=== PATIENT | male | born 1945 | race Caucasian/White ===

== ENCOUNTER 2016-09-08 08:34 | Day surgery (SDC) | payer OTHER ==
[~2016-09-08 08:34] MED LIST: CEFAZOLIN SODIUM 2 GRAM PREMIX 100 ML IV ONE; IV START KIT ONE; LACTATED RINGERS 1,000 ML ONE
[2016-09-08] MEDS ORDERED: CEFAZOLIN SODIUM 2 GRAM PREMIX 100 ML IV PRN (09:00)
[2016-09-08] MEDS ORDERED: MIDAZOLAM HCL 1 MG/ML 2ML VIAL ONE (09:43)
[2016-09-08] MEDS ORDERED: BUPIVACAINE 0.5% (PRES FREE) 30 ML VIAL ONE (10:32)
[2016-09-08] MEDS ORDERED: BACITRACIN 1 APPLIC/500 UNIT PACKET TP ONE (10:32)
[2016-09-08] MEDS ORDERED: PROPOFOL 20 ML IV ONE ×2 (10:39→11:41)
[2016-09-08] MEDS ORDERED: SPINAL PROCEDURAL TRAY 1 EACH ONE (10:39)
[2016-09-08] MEDS ORDERED: BUPIVACAINE 0.75% SPINAL AMPUL 2 ML ONE (10:41)
[2016-09-08] MEDS ORDERED: NEOMY SULF/POLYMYXIN B SULFATE 1 ML AMP IR ONE (11:10)
[2016-09-08] MEDS ORDERED: MORPHINE SULFATE 4 MG/ML SYRINGE IV PRN ×2 (11:12→14:29)
[2016-09-08] MEDS ORDERED: ONDANSETRON 4 MG/2ML 2 ML VIAL IV PRN ×2 (11:12→14:17)
[2016-09-08] MEDS ORDERED: PROMETHAZINE HCL 25 MG/ML VIAL IM PRN (11:12)
[2016-09-08] MEDS ORDERED: FENTANYL 100 MCG/2 ML VIAL IV PRN (11:12)
[2016-09-08] MEDS ORDERED: LACTATED RINGERS 1,000 ML IV SCH (11:15)
[2016-09-08] MEDS ORDERED: MORPHINE SULFATE 2 MG/ML SYRINGE IV PRN (14:17)
[2016-09-08] MEDS ORDERED: HYDROCODONE/ACETAMINOPHEN 5/325MG TABLET ONE (14:29)
[2016-09-08] MEDS: HYDROCODONE/ACETAMINOPHEN 5/325MG TABLET PO PRN (14:31)
--- NOTE | 2016-09-08 14:54 | OP ---
AMELIE MONTGOMERY [id number] DATE OF OPERATION: September 08, 2016 SURGEON: Cecilio Liang M.D. LABORATORY INSPECTOR: Rea Mora ANESTHEISA: Spinal. PREOPERATIVE DIAGNOSIS: Massive bilateral hydroceles. POSTOPERATIVE DIAGNOSIS: Massive bilateral hydroceles. PROCEDURE: BILATERAL HYDROCELE REPAIR (EXTENDED DURATION). SPECIMENS: Bilateral portions of hydrocele sacs. INDICATIONS: The patient is a 71-year-old man with a greater than 14 year history of increasing scrotal distention with a [facility] 2016. They have become massive and quite uncomfortable, and the patient presents for surgical intervention. FINDINGS: Right side greater than left side massive hydroceles with clear yellow fluid and no obvious intrinsic pathology of the testicle, epididymis or tunica vaginalis. The right lateral aspect of the right-sided hydrocele was quite scarred to the scrotal wall probably representing some chronic intermittent traumas. PROCEDURE: The patient was identified and brought to the operating room where spinal anesthetic was applied and then he was placed supine on the table. The scrotal region was shaved, prepared, and draped sterilely. We anesthetized the anterior midline raphe of the scrotal wall with 0.5% Marcaine and opened a vertical incision in the raphe and carried it through the dartos with cautery. We elected to start on the left side which was smaller, and dissected the connective tissue between the hydrocele sac and the scrotal wall away from the hydrocele eventually delivering it into the wound and then progressing all the way up to the cord level. The hydrocele sac was then opened on its anterior aspect. This was drained, and the wings of hydrocele sac excised from both sides. We then everted the remaining portions of the hydrocele sac and sutured them posterior to the testicle and cord structures with a running #4-0 PDS suture. With that complete, we checked for any focal bleeding points within the scrotum and treated these with light cautery. We placed a genitourinary irrigant in the left hemiscrotum with the testicle and cord in place and turned our attention to the right side. A prolonged period was required to dissect the right-sided hydrocele out of its scrotal containment largely related to dense scar tissue on the lateral aspect. Once we had sufficiently delivered it from the right hemiscrotum, we also opened this sac which proved to be a location close to the medial aspect of the testicle and cord structures. We extended this incision around and excised the bulk of the hydrocele sac in one piece. We, similarly to the left side, everted the flaps behind the testicle and cord structures and secured them with running #4-0 PDS suture. With that complete, we checked the inside of the right hemiscrotum for any focal bleeding and then irrigated with genitourinary irrigant. A 1/4 inch Kal drain was placed through stab incisions in each hemiscrotum, secured at the level of the skin with #2-0 nylon. The testicle and cord structures were oriented and carefully placed within each hemiscrotum and secured inferiorly and laterally with #3-0 silk suture. Finally, the edges of the dartos including the median and central plane were closed with a running #3-0 Vicryl suture. The skin was reapproximated with interrupted vertical mattress sutures of #4-0 Chromic. Antibiotic ointment was applied over the suture line followed by Xeroform gauze and then a fluff dressing with scrotal compression. Estimated blood loss less than 40 mL. Sponge and needle counts were correct. No early complications. Patient tolerated the procedure well and was taken in stable condition to the post anesthesia room. [id number] cc: Demetrio Cespedes M.D. David Lampert, N.P.
--- NOTE | 2016-09-10 10:39 | SURGPATH ---
[facility] [address] [place] [id number] Patient Name: AMELIE MONTGOMERY MR#: [id number] : 1945 Gender: M Specimen #: [id number] Collected: 09/08/2016 Received: 09/09/2016 Reported: 09/10/2016 Submitting Phys: JADON DAWKINS Copy To Phys: [facility] Clinical History / Pre-Operative Diagnosis: Bilateral hydrocele Specimen Source / Surgical Procedure Performed: #1-portions of left hydrocele sac; #2-portions of right hydrocele sac Interpretation: 1, 2. PORTIONS OF LEFT HYDROCELE SAC, PORTIONS OF RIGHT HYDROCELE SAC: - FIBROMEMBRANOUS TISSUE CONSISTENT WITH HYDROCELE SACS Electronically Signed Out Alexey Swift M.D. Gross Description: #1 The specimen is received in a formalin filled container labeled with the patient's name and "portions of left hydrocele sac". Two fibromembranous fragments of pink-ferro soft tissue are 6.0 x 3.0 x 1.0 cm and 6.5 x 3.0 x 0.8 cm. Sectioning reveals no nodule or induration. A commercial representative cross section of each is submitted in cassette #1. #2 The specimen is received in a formalin filled container labeled with the patient's name and "portions of right hydrocele sac". An irregular portion of yellow ferro-ly, fibromembranous and fatty soft tissue is 9.5 x 6.0 x 1 cm. There is no nodule or induration. A single commercial representative cross section is submitted in cassette #2. Yamilex Nagy Microscopic Description: 1. A slide contains portions of fibrovascular membranous tissue with patchy chronic inflammation. Focally mesothelial cells are seen on the surface. Malignant features are not identified. 2. A slide contains fibrovascular membranous tissue with patchy chronic inflammation and focally mesothelial cells on the surface. Malignant features are not seen. 1: 11542 2: 44977 N43.3
== END 2016-09-08 17:35 | disposition home or self-care (01) ==
LOC: SDC 08:34
PROVIDERS: ATTEND Urology
PROC: 0VQ Male Reproductive System, Repair (ICD-10-PCS; principal; 2016-09-08)
DX: N43.3 Hydrocele, unspecified (principal); I10 Essential (primary) hypertension; E78.5 Hyperlipidemia, unspecified; K21.9 Gastro-esophageal reflux disease without esophagitis; Z88.8 Allergy status to other drugs, medicaments and biological substances
CPT/HCPCS: 55060; J2250; J7120; A9270 ×2; J0690